=== PATIENT | male | born 1995 | race Caucasian/White ===

== ENCOUNTER 2017-05-21 00:27 | Emergency (ER) | payer SELFPAY ==
[~2017-05-21] VITALS: Ht 172.7 cm; Wt 75.0 kg
[2017-05-21 05:37] VITALS: BP 132/74
== END 2017-05-21 05:39 | disposition home or self-care (01) ==
LOC: ER 00:27
DX: B00.1 Herpesviral vesicular dermatitis (principal); J45.909 Unspecified asthma, uncomplicated; F17.210 Nicotine dependence, cigarettes, uncomplicated; F12.10 Cannabis abuse, uncomplicated
CPT/HCPCS: 99283

== ENCOUNTER 2019-01-01 16:59 | Emergency (ER) | payer SELFPAY ==
[~2019-01-01] VITALS: Ht 172.7 cm; Wt 91.0 kg
[2019-01-01] MEDS ORDERED: FAMOTIDINE 20MG TABLET PO ONE (20:15)
[2019-01-01 21:18] VITALS: BP 140/92
== END 2019-01-01 21:19 | disposition home or self-care (01) ==
LOC: ER 18:00
DX: J02.9 Acute pharyngitis, unspecified (principal); F12.10 Cannabis abuse, uncomplicated; J45.909 Unspecified asthma, uncomplicated; Z88.6 Allergy status to analgesic agent
CPT/HCPCS: 70360; 99283